=== PATIENT | female | born 1935 | race Caucasian/White ===

== ENCOUNTER → 2018-02-11 08:50 | Outpatient (CLI) | payer MEDICARE, SELFPAY ==
[2018-02-11 11:28] LABS: Add Manual Diff / Slide Review NO; Basophils Percent Auto 0.9 % (0-2); Eosinophils Percent Auto 3.4 % (2-4); Hematocrit 39.2 % (36-46); Hemoglobin 13.3 g/dL (12.0-16.0); Lymphocytes Percent Auto 33.8 % (25-40); Mean Corpuscular Volume 88.3 fL (80-100); Monocytes Percent Auto 4.5 % (3-14); Neutrophils Absolute Auto 3900 /uL (3000-5900); Neutrophils Percent Auto 57.4 % (50-75); Platelet Count 222 X10^3/uL (150-400); Red Blood Cell Count 4.44 X10^6/uL (4.0-5.2); Red Cell Distribution Width 14.2 % (11.6-14.8); White Blood Cell Count 6.8 X10^3/uL (4.5-11.0)
[2018-02-11 11:38] LABS: Alanine Aminotransferase 23 IU/L (9-52); Albumin Globulin Ratio 1.4 (1.0-2.8); Alkaline Phosphatase 61 U/L (38-126); Aspartate Aminotransferase 20 IU/L (14-36); Bilirubin Total 0.6 mg/dL (0.2-1.3); Blood Urea Nitrogen 14 mg/dL (7-17); Calcium 9.3 mg/dL (8.4-10.2); Carbon Dioxide 27 mmol/L (22-32); Chloride 102 mmol/L (98-107); Cholesterol 183 mg/dL (140-199); Estimated Glomerular Filt Rate > 60.0 mL/min (>60); Globulin 2.9 g/dL (1.7-4.1); Glucose 88 mg/dL (80-110); HDL Cholesterol 63 mg/dL (40-60); HEMOLYSIS < 15 (0-50); LDL Cholesterol Calculated 106 mg/dL (<100); Potassium 4.1 mmol/L (3.4-5.1); Sodium 141 mmol/L (137-145); Total Protein 6.9 g/dL (6.3-8.2); Triglycerides 68 mg/dL (35-150)
[2018-02-11 12:04] LABS: TSH w/ Reflex to FT4 2.76 uIU/mL (0.47-4.68)
== END ==
PROVIDERS: PCP Family Medicine; Visit Provider Family Medicine
DX: M47.22 Other spondylosis with radiculopathy, cervical region (principal); M19.90 Unspecified osteoarthritis, unspecified site
CPT/HCPCS: 36415; 80053; 80061; 84443; 85025

== ENCOUNTER 2018-03-13 11:34 | Emergency (ER) | payer MEDICARE, SELFPAY ==
[2018-03-13 11:41] VITALS: BP 186/80; PULSE 95; RESP 20; TEMP 36.5; O2SAT 100; BMI 21.7
--- NOTE | 2018-03-13 16:27 | ED_ITS ---
HPI - Skin/Abscess/Foreign Bdy General Chief complaint: Skin/Abscess/Foreign Body Stated complaint: bumped rt wrist, bruising and swollen Time Seen by Provider: 03/13/18 11:45 Source: patient Mode of arrival: ambulatory Limitations: no limitations History of Present Illness HPI narrative: 82-year-old nonsmoking female presents with a friend after she injured her right forearm just prior to arrival. The patient lightly bumped her right arm on a metal cabinet and is caused an area of swelling and tenderness. She denies any other pain or injury. She denies any numbness, tingling or weakness. She takes no blood thinners complaint: other Onset (ago): minute(s) Tetanus up to date: yes Location: RUE Severity: mild Quality: aching Pain Consistency: constant Relieving factors: none Exacerbating factors: palpation Context: none Associated symptoms: denies other symptoms Treatments prior to arrival: none Related Data Home Medications Medication Instructions Recorded Confirmed AMINOBENZOIC ACID/BIOTIN/CA (#B 1 cap PO Q DAY #0 05/10/11 02/12/18 COMPLEX) FLAXSEED (FLAXSEED OIL) 1 cap PO Q DAY #0 05/10/11 02/12/18 Fish Oil (#OMEGA 3) 1,000 mg PO Q DAY #0 05/10/11 02/12/18 [GLUCOSIMINE] 1,500 mg PO QDAY #0 07/24/11 02/12/18 cholecalciferol (vitamin D3) 1,000 iu PO QDAY #0 07/24/11 02/12/18 [Vitamin D3] aspirin 325 mg tablet 325 mg PO .EVERY OTHER DAY tab 02/12/18 02/12/18 aspirin 81 mg tablet,delayed 81 mg PO .EVERY OTHER DAY tab 02/12/18 02/12/18 release Previous Rx's Medication Instructions Recorded paroxetine HCl [Paxil] 20 mg PO QDAY #90 tab 12/13/16 Allergies Allergy/AdvReac Type Severity Reaction Status Date / Time No Known Drug Allergies Allergy Verified 02/12/18 13:36 Review of Systems Review of Systems All systems reviewed & are unremarkable except as noted in HPI and below Constitutional Denies chills, Denies fever(s), Denies lethargy and Denies weakness Cardiovascular Denies chest pain, Denies irregular heart rhythm, Denies lightheadedness, Denies palpitations and Denies orthopnea Gastrointestinal Gastrointestinal: Denies abdominal pain, Denies change in bowel habits, Denies diarrhea, Denies nausea and Denies vomiting Musculoskeletal Denies back pain, Denies muscle weakness, Denies numbness and Denies tingling Integumentary/Breasts Denies pruritus, Denies erythema, Denies rash and Denies wounds Neurologic Denies numbness, Denies tingling and Denies weakness Endocrine Denies palpitations FORMERLY [facility] Medical History Depression (Chronic) Surgical History Status post appendectomy Status post vaginal hysterectomy Family History Father No problems noted. Mother No problems noted. Social History Smoking Status: Never smoker alcohol intake: never substance use type: does not use Exam Narrative Exam Narrative: GEN: AOx3 and in mild distress EYES: Pupils are equal, round, and reactive to light and accommodation. Extraoccular muscles are intact bilaterally. There is no subconjunctival hemorrhage or exudate. CHEST: Lungs are clear to auscultation bilaterally and free of wheezes, rales, or rhonchi. Heart rate is regular rhythm, there are no murmurs, clicks, rubs, or gallops. There is no chest wall tenderness. ABD: Abdomen is soft and nontender. There is no guarding or rebound. Bowel sounds are normal in all 4 quadrants. There is no mass or organomegaly. EXT: 2 cm tender hematoma on right forearm overlying distal 3rd of radius. No break in the skin. No crepitance or suggestion of significant injury. Full painless ROM of all extremities with no loss of sensation or strength. SKIN: Warm, pink, and dry. No erythema or rash Initial Vital Signs Initial Vital Signs: Vital Signs Temperature 97.7 F 03/13/18 11:41 Pulse Rate 95 H 03/13/18 11:41 Respiratory Rate 20 03/13/18 11:41 Blood Pressure 186/80 H 03/13/18 11:41 Pulse Oximetry 100 03/13/18 11:41 Course Reevaluation(s) Reevaluation #1: patient wrapped in compressive dressing, tolerates well. Neurovascular status remains intact Vital Signs - 8 hr 03/13/18 11:41 Temperature 97.7 F Pulse Rate 95 H Respiratory Rate 20 Blood Pressure 186/80 H Pulse Oximetry 100 Discharge Plan Departure Patient Disposition: Home Clinical Impression: Hematoma Discharge Date/Time: 03/13/18 11:58 Interventions: ED Discharge Assessment Last Done: 03/13/18 11:58 Instructions: DI for Hematoma (Bruise) Activity Restrictions/Additional Instructions: *You have been diagnosed with [ right forearm hematoma] *What to do: * continue to take medications as directed *Follow up with your primary care provider in 2-3 days, call for an appointment. Let them know you were seen in the Emergency Department and that we ask that you be seen in follow up *Return to ER if you should have any new, worsening or concerning symptoms Prescriptions: No Action AMINOBENZOIC ACID/BIOTIN/CA (#B COMPLEX) 1 cap PO Q DAY Qty: 0 RF: 0 FLAXSEED (FLAXSEED OIL) 1 cap PO Q DAY Qty: 0 RF: 0 Fish Oil (#OMEGA 3) 1,000 mg PO Q DAY Qty: 0 RF: 0 cholecalciferol (vitamin D3) [Vitamin D3] 1,000 UNIT tablet 1,000 iu PO QDAY Qty: 0 RF: 0 [GLUCOSIMINE] 1,500 mg PO QDAY Qty: 0 RF: 0 paroxetine HCl [Paxil] 20 MG tablet 20 mg PO QDAY Qty: 90 RF: 2 aspirin [Adult Low Dose Aspirin] 81 mg tablet,delayed release (DR/EC) 81 mg PO .EVERY OTHER DAY RF: 0 aspirin 325 mg tablet 325 mg PO .EVERY OTHER DAY RF: 0
== END 2018-03-13 11:58 | disposition home or self-care (01) ==
LOC: ED 11:54
PROVIDERS: Emergency Provider Emergency Medicine; PCP Family Medicine
DX: S50.11XA Contusion of right forearm, initial encounter (principal); W22.8XXA Striking against or struck by other objects, initial encounter
CPT/HCPCS: 99282

== ENCOUNTER → 2018-06-20 12:21 | Outpatient (CLI) | payer MEDICARE, SELFPAY ==
--- NOTE | 2018-06-20 | DI.MG.S_ITS ---
BILATERAL DIGITAL SCREENING MAMMOGRAM 3D/2D WITH CAD: 06/20/2018 CLINICAL: Routine screening. Comparison is made to exams dated: 06/14/2017 mammogram, 06/05/2016 mammogram, and 06/02/2015 mammogram - [facility]. There are scattered fibroglandular elements in both breasts. Current study was also evaluated with a Computer Aided Detection (CAD) system. No significant masses, calcifications, or other findings are seen in either breast. There has been no significant interval change. IMPRESSION: NEGATIVE There is no mammographic evidence of malignancy. A 1 year screening mammogram is recommended. This exam was interpreted at Station ID: [id number]. NOTE: For mammograms, a report in lay terms will be sent to the patient. Approximately 15% of breast malignancies will not be visualized mammographically. In the management of a palpable breast mass, a negative mammogram must not discourage biopsy of a clinically suspicious lesion. Electronically Signed By: Dejan cope/miller:06/20/2018 13:25:51 letter sent: Normal Exam ACR BI-RADS Category 1: Negative 3341F
== END ==
PROVIDERS: PCP Family Medicine; Visit Provider Family Medicine
DX: Z12.31 Encounter for screening mammogram for malignant neoplasm of breast (principal)
CPT/HCPCS: 77063; 77067

== ENCOUNTER → 2019-06-23 09:29 | Outpatient (CLI) | payer MEDICARE, SELFPAY ==
--- NOTE | 2019-06-23 | DI.MG.S_ITS ---
BILATERAL DIGITAL SCREENING MAMMOGRAM 3D/2D WITH CAD: 06/23/2019 CLINICAL: Routine screening. Comparison is made to exams dated: 06/20/2018 mammogram, 06/14/2017 mammogram, and 06/05/2016 mammogram - [facility]. There are scattered fibroglandular elements in both breasts. Current study was also evaluated with a Computer Aided Detection (CAD) system. There are benign calcifications in both breasts. There also are benign vascular calcifications in both breasts. No significant masses, calcifications, or other findings are seen in either breast. There has been no significant interval change. IMPRESSION: There is no mammographic evidence of malignancy. A 1 year screening mammogram is recommended. This exam was interpreted at Station ID: [id number]. NOTE: For mammograms, a report in lay terms will be sent to the patient. Approximately 15% of breast malignancies will not be visualized mammographically. In the management of a palpable breast mass, a negative mammogram must not discourage biopsy of a clinically suspicious lesion. Electronically Signed By: Evette epperson/miller:06/23/2019 10:21:43 letter sent: Normal Exam ACR BI-RADS Category 2: Benign Finding(s) 3342F
== END ==
PROVIDERS: PCP Family Medicine; Referring Provider Family Medicine; Visit Provider Family Medicine
DX: Z12.31 Encounter for screening mammogram for malignant neoplasm of breast (principal)
CPT/HCPCS: 77063; 77067

== ENCOUNTER → 2020-02-09 09:10 | Outpatient (CLI) | payer MEDICARE, SELFPAY ==
[2020-02-09 10:13] LABS: Add Manual Diff / Slide Review NO; Basophils Absolute Auto 100 /uL (0-100); Basophils Percent Auto 1.3 % (0-2); Eosinophils Absolute Auto 300 /uL (0-450); Eosinophils Percent Auto 4.5 % (2-4); Hematocrit 39.9 % (36-46); Hemoglobin 13.3 g/dL (12.0-16.0); Lymphocytes Absolute Auto 1900 /uL (1100-4500); Lymphocytes Percent Auto 33.8 % (25-40); Mean Corpuscular HGB Conc 33.2 % (30-36); Mean Corpuscular Volume 90.3 fL (80-100); Monocytes Absolute Auto 300 /uL (0-900); Monocytes Percent Auto 5.3 % (3-14); Neutrophils Absolute Auto 3100 /uL (1500-7000); Neutrophils Percent Auto 55.1 % (50-75); Platelet Count 223 X10^3/uL (150-400); Red Blood Cell Count 4.42 X10^6/uL (4.0-5.2); Red Cell Distribution Width 14.2 % (11.6-14.8); White Blood Cell Count 5.7 X10^3/uL (4.5-11.0)
[2020-02-09 11:53] LABS: Alanine Aminotransferase 14 IU/L (<35); Albumin Globulin Ratio 1.5 (1.0-2.8); Alkaline Phosphatase 64 U/L (38-126); Aspartate Aminotransferase 22 IU/L (14-36); BUN Creatinine Ratio 23.9 (6-22); Bilirubin Total 0.6 mg/dL (0.2-1.3); Blood Urea Nitrogen 17 mg/dL (7-17); Calcium 9.6 mg/dL (8.4-10.2); Carbon Dioxide 29 mmol/L (22-32); Chloride 101 mmol/L (98-107); Estimated Glomerular Filt Rate > 60.0 mL/min (>60); Globulin 2.7 g/dL (1.7-4.1); Glucose 88 mg/dL (80-110); HEMOLYSIS < 15 (0-50); Potassium 4.8 mmol/L (3.4-5.1); Sodium 135 mmol/L (137-145); Total Protein 6.7 g/dL (6.3-8.2)
[2020-02-09 12:20] LABS: TSH w/ Reflex to FT4 2.54 uIU/mL (0.47-4.68)
== END ==
PROVIDERS: PCP Family Medicine; Referring Provider Family Medicine; Visit Provider Family Medicine
DX: F34.1 Dysthymic disorder (principal); M19.90 Unspecified osteoarthritis, unspecified site; M47.22 Other spondylosis with radiculopathy, cervical region
CPT/HCPCS: 36415; 80053; 84443; 85025

== ENCOUNTER → 2020-07-11 16:41 | Outpatient (CLI) | payer MEDICARE, SELFPAY ==
--- NOTE | 2020-07-11 16:43 | DI.MG.S_ITS ---
BILATERAL DIGITAL SCREENING MAMMOGRAM 3D/2D WITH CAD: 07/11/2020 CLINICAL: Routine screening. Comparison is made to exams dated: 06/23/2019 mammogram, 06/20/2018 mammogram, 06/14/2017 mammogram, 06/05/2016 mammogram, and 06/02/2015 mammogram - [facility]. There are scattered fibroglandular elements in both breasts. Current study was also evaluated with a Computer Aided Detection (CAD) system. There are benign calcifications in both breasts. There also are benign vascular calcifications in both breasts. No significant masses, calcifications, or other findings are seen in either breast. There has been no significant interval change. IMPRESSION: BENIGN There is no mammographic evidence of malignancy. A 1 year screening mammogram is recommended. This exam was interpreted at Station ID: [id number]. NOTE: For mammograms, a report in lay terms will be sent to the patient. Approximately 15% of breast malignancies will not be visualized mammographically. In the management of a palpable breast mass, a negative mammogram must not discourage biopsy of a clinically suspicious lesion. Electronically Signed By: Jimbo hernandez/miller:07/12/2020 07:49:20 letter sent: Normal Exam ACR BI-RADS Category 2: Benign Finding(s) 3342F
== END ==
PROVIDERS: PCP Family Medicine; Referring Provider Family Medicine; Visit Provider Family Medicine
DX: Z12.31 Encounter for screening mammogram for malignant neoplasm of breast (principal)
CPT/HCPCS: 77063; 77067

== ENCOUNTER → 2020-07-23 11:09 | Outpatient (CLI) | payer MEDICARE, SELFPAY ==
--- NOTE | 2020-07-23 | DI.MRI.S_ITS ---
PROCEDURE: MR CERVICAL SPINE WO CON INDICATIONS: Spondylosis without myelopathy or radiculopathy, cervical re TECHNIQUE: Noncontrast sagittal T1 spin echo and T2 fast spin echo, sagittal STIR, foraminal oblique sagittal T2 fast spin echo, and axial gradient echo or T2 fast spin echo through the cervical spine. COMPARISON: [facility], MR, C-SPINE WITHOUT CONTRAST, 04/27/2014, 7:48. FINDINGS: Image quality: Excellent. Alignment and Curvature: There is mild grade 1 anterolisthesis of C3 on C4 and C7 on T1. Mild grade 1 retrolisthesis of C6 on C7. Bone Marrow: Marrow demonstrates normal overall signal. There is mild reactive signal throughout the endplates of the cervical spine. Spinal Cord: Visualized spinal cord has normal size and signal. No cerebellar tonsillar herniation. Paraspinous Soft Tissues: No paravertebral masses. Prevertebral soft tissues are normal in thickness. C2-C3: Moderate disc desiccation. Mild facet and uncovertebral hypertrophy, left greater than right. Mild canal stenosis. Increased, moderate left and mild right foraminal stenosis. C3-C4: Moderate disc height loss and desiccation. Moderate diffuse disc bulge with superimposed left paracentral disc protrusion. Moderate facet and uncovertebral hypertrophy, right greater than left. Increased, moderate to severe canal stenosis with new minimal cord flattening. Increased, severe right and moderate left foraminal stenosis. Right C4 nerve root compression. C4-C5: Moderate disc height loss and desiccation. Mild diffuse disc bulge. Moderate left greater than right facet and uncovertebral hypertrophy. Increased, moderate canal stenosis. Moderate bilateral foraminal stenosis, increased from the prior examination. C5-C6: Moderate disc height loss and desiccation. Mild diffuse disc bulge. Moderate right and mild left facet and uncovertebral hypertrophy. Moderate canal stenosis is unchanged. Increased, moderate right foraminal stenosis. No change in mild left foraminal stenosis. C6-C7: Moderate disc height loss and desiccation. Moderate diffuse disc bulge. Mild left and moderate right facet and uncovertebral hypertrophy. Increased, moderate canal stenosis. Increased, moderate right and mild left foraminal stenosis. C7-T1: Moderate disc height loss and desiccation. Mild diffuse disc bulge. Mild facet and uncovertebral hypertrophy bilaterally, left greater than right. Moderate canal stenosis. Increased, moderate to severe left and moderate right foraminal stenosis. New mild left C8 nerve root compression. IMPRESSION: 1. Multilevel degenerative disc and facet disease, as well as uncovertebral hypertrophy. 2. Multilevel canal stenoses, worst at C3-C4 where there is minimal cord flattening. 3. Multilevel foraminal stenosis, worst at C3-C4 and C7-T1 where there is associated intraforaminal nerve root compression. Recommend correlation with clinical symptoms to ascertain relevance of this finding. Dictated by: James Becker M.D. on 07/25/2020 at 8:59 Approved by: James Becker M.D. on 07/25/2020 at 9:11
== END ==
PROVIDERS: PCP Family Medicine; Referring Provider Physical Medicine & Rehabilitation; Visit Provider Physical Medicine & Rehabilitation
DX: M47.812 Spondylosis without myelopathy or radiculopathy, cervical region (principal); M50.31 Other cervical disc degeneration, high cervical region; M48.02 Spinal stenosis, cervical region
CPT/HCPCS: 72141

== ENCOUNTER → 2021-06-01 15:28 | Outpatient (CLI) | payer MEDICARE, SELFPAY ==
[2021-06-01 17:07] LABS: Add Manual Diff / Slide Review NO; Basophils Absolute Auto 100 /uL (0-100); Basophils Percent Auto 0.9 % (0-2); Eosinophils Absolute Auto 400 /uL (0-450); Eosinophils Percent Auto 4.6 % (2-4); Hematocrit 37.2 % (36-46); Hemoglobin 12.7 g/dL (12.0-16.0); Lymphocytes Absolute Auto 2500 /uL (1100-4500); Lymphocytes Percent Auto 31.3 % (25-40); Mean Corpuscular HGB Conc 34.1 % (30-36); Monocytes Absolute Auto 400 /uL (0-900); Monocytes Percent Auto 5.5 % (3-14); Neutrophils Absolute Auto 4500 /uL (1500-7000); Neutrophils Percent Auto 57.7 % (50-75); Platelet Count 223 X10^3/uL (150-400); Red Blood Cell Count 4.23 X10^6/uL (4.0-5.2); Red Cell Distribution Width 14.1 % (11.6-14.8); White Blood Cell Count 7.9 X10^3/uL (4.5-11.0)
[2021-06-01 17:28] LABS: Alanine Aminotransferase 12 IU/L (<35); Albumin 4.3 g/dL (3.5-5.0); Albumin Globulin Ratio 1.7 (1.0-2.8); Alkaline Phosphatase 67 U/L (38-126); Aspartate Aminotransferase 24 IU/L (14-36); BUN Creatinine Ratio 22.9 (6-22); Bilirubin Total 0.4 mg/dL (0.2-1.3); Blood Urea Nitrogen 16 mg/dL (7-17); Calcium 9.8 mg/dL (8.4-10.2); Carbon Dioxide 27 mmol/L (22-32); Chloride 100 mmol/L (98-107); Estimated Glomerular Filt Rate > 60.0 mL/min (>60); Globulin 2.6 g/dL (1.7-4.1); Glucose 91 mg/dL (80-110); HEMOLYSIS < 15 (0-50); Potassium 4.9 mmol/L (3.4-5.1); Sodium 134 mmol/L (137-145); Total Protein 6.9 g/dL (6.3-8.2)
== END ==
PROVIDERS: PCP Family Medicine; Referring Provider Physician Assistant; Visit Provider Physician Assistant
DX: M25.50 Pain in unspecified joint (principal); Z13.0 Encounter for screening for diseases of the blood and blood-forming organs and certain disorders involving the immune mechanism; Z13.1 Encounter for screening for diabetes mellitus
CPT/HCPCS: 36415; 80053; 85025

== ENCOUNTER → 2021-07-13 15:43 | Outpatient (CLI) | payer MEDICARE, SELFPAY ==
--- NOTE | 2021-07-13 15:47 | DI.MG.S_ITS ---
BILATERAL DIGITAL SCREENING MAMMOGRAM 3D/2D WITH CAD: 07/13/2021 CLINICAL: Routine screening. Comparison is made to exams dated: 07/11/2020 mammogram, 06/23/2019 mammogram, and 06/20/2018 mammogram - [facility]. There are scattered fibroglandular elements in both breasts. Current study was also evaluated with a Computer Aided Detection (CAD) system. There are benign calcifications in both breasts. There also are benign vascular calcifications in both breasts. No significant masses, calcifications, or other findings are seen in either breast. There has been no significant interval change. IMPRESSION: BENIGN There is no mammographic evidence of malignancy. A 1 year screening mammogram is recommended. This exam was interpreted at Station ID: [id number]. NOTE: For mammograms, a report in lay terms will be sent to the patient. Approximately 15% of breast malignancies will not be visualized mammographically. In the management of a palpable breast mass, a negative mammogram must not discourage biopsy of a clinically suspicious lesion. Electronically Signed By: Darby forbes/miller:07/13/2021 16:59:45 letter sent: Normal Exam ACR BI-RADS Category 2: Benign Finding(s) 3342F
== END ==
PROVIDERS: PCP Family Medicine; Referring Provider Family Medicine; Visit Provider Family Medicine
DX: Z12.31 Encounter for screening mammogram for malignant neoplasm of breast (principal)
CPT/HCPCS: 77063; 77067

== ENCOUNTER → 2022-07-20 07:56 | Outpatient (CLI) | payer MEDICARE, SELFPAY ==
--- NOTE | 2022-07-20 | DI.MG.S_ITS ---
BILATERAL DIGITAL SCREENING MAMMOGRAM 3D/2D WITH CAD: 07/20/2022 CLINICAL: Routine screening. Comparison is made to exams dated: 07/13/2021 mammogram, 07/11/2020 mammogram, 06/23/2019 mammogram, and 06/20/2018 mammogram - [facility]. There are scattered areas of fibroglandular density in both breasts (category b / 25%-50% glandular tissue). Current study was also evaluated with a Computer Aided Detection (CAD) system. There are benign calcifications in both breasts. There also are benign vascular calcifications in both breasts. No significant masses, calcifications, or other findings are seen in either breast. There has been no significant interval change. IMPRESSION: BENIGN There is no mammographic evidence of malignancy. A 1 year screening mammogram is recommended. Based on the Tyrer Cuzick model (a risk assessment model) the patient's lifetime risk is 0.2% and her 10 year risk is 0.0%. According to the ACR, ACS, and NCCN guidelines, an annual breast MRI exam along with mammogram is recommended if the patient's lifetime risk is 20% or greater. This exam was interpreted at Station ID: [id number]. NOTE: For mammograms, a report in lay terms will be sent to the patient. Approximately 15% of breast malignancies will not be visualized mammographically. In the management of a palpable breast mass, a negative mammogram must not discourage biopsy of a clinically suspicious lesion. Electronically Signed By: Evette epperson/miller:07/20/2022 09:50:23 letter sent: Normal Exam ACR BI-RADS Category 2: Benign Finding(s) 3342F
== END ==
PROVIDERS: PCP Family Medicine; Referring Provider Family Medicine; Visit Provider Family Medicine
DX: Z12.31 Encounter for screening mammogram for malignant neoplasm of breast (principal)
CPT/HCPCS: 77063; 77067

== ENCOUNTER → 2023-08-05 13:55 | Outpatient (CLI) | payer MEDICARE, SELFPAY ==
--- NOTE | 2023-08-05 13:58 | DI.MG.S_ITS ---
BILATERAL DIGITAL SCREENING MAMMOGRAM 3D/2D WITH CAD: 08/05/2023 CLINICAL: Routine screening. Comparison is made to exams dated: 07/20/2022 mammogram, 07/13/2021 mammogram, 07/11/2020 mammogram, and 06/23/2019 mammogram - [facility]. There are scattered areas of fibroglandular density in both breasts (category b / 25%-50% glandular tissue). Current study was also evaluated with a Computer Aided Detection (CAD) system. There are benign calcifications in both breasts. There also are benign vascular calcifications in both breasts. No significant masses, calcifications, or other findings are seen in either breast. There has been no significant interval change. IMPRESSION: BENIGN There is no mammographic evidence of malignancy. A 1 year screening mammogram is recommended. This exam was interpreted at Station ID: [id number]. NOTE: For mammograms, a report in lay terms will be sent to the patient. Approximately 15% of breast malignancies will not be visualized mammographically. In the management of a palpable breast mass, a negative mammogram must not discourage biopsy of a clinically suspicious lesion. Electronically Signed By: Jimbo hernandez/miller:08/05/2023 15:12:35 letter sent: Normal Exam ACR BI-RADS Category 2: Benign Finding(s) 3342F
== END ==
PROVIDERS: PCP Family Medicine; Referring Provider Family Medicine; Visit Provider Family Medicine
DX: Z12.31 Encounter for screening mammogram for malignant neoplasm of breast (principal); R92.323 Mammographic fibroglandular density, bilateral breasts
CPT/HCPCS: 77063; 77067

== ENCOUNTER → 2023-09-13 07:29 | Outpatient (CLI) | payer MEDICARE, SELFPAY ==
[2023-09-13 08:23] LABS: Add Manual Diff / Slide Review NO; Basophils Absolute Auto 100 /uL (0-100); Basophils Percent Auto 1.2 % (0-2); Eosinophils Absolute Auto 300 /uL (0-450); Eosinophils Percent Auto 5.5 % (2-4); Hematocrit 38.5 % (36-46); Hemoglobin 13.3 g/dL (12.0-16.0); Lymphocytes Absolute Auto 1800 /uL (1100-4500); Lymphocytes Percent Auto 33.7 % (25-40); Mean Corpuscular HGB Conc 34.5 % (30-36); Mean Corpuscular Hemoglobin 30.9 PG (26-34); Mean Corpuscular Volume 89.3 fL (80-100); Monocytes Absolute Auto 300 /uL (0-900); Monocytes Percent Auto 6.4 % (3-14); Neutrophils Absolute Auto 2800 /uL (1500-7000); Neutrophils Percent Auto 53.2 % (50-75); Platelet Count 214 X10^3/uL (150-400); Red Blood Cell Count 4.31 X10^6/uL (4.0-5.2); Red Cell Distribution Width 14.3 % (11.6-14.8); White Blood Cell Count 5.3 X10^3/uL (4.5-11.0)
[2023-09-13 08:48] LABS: HEMOLYSIS < 15 (0-50); Iron 103 ug/dL (37-170)
[2023-09-13 08:51] LABS: Alanine Aminotransferase 15 IU/L (<35); Albumin 4.3 g/dL (3.5-5.0); Albumin Globulin Ratio 1.7 (1.0-2.8); Alkaline Phosphatase 68 U/L (38-126); Aspartate Aminotransferase 24 IU/L (14-36); BUN Creatinine Ratio 22.5 (6-22); Bilirubin Total 0.8 mg/dL (0.2-1.3); Blood Urea Nitrogen 16 mg/dL (7-17); Calcium 9.6 mg/dL (8.4-10.2); Carbon Dioxide 27 mmol/L (22-32); Chloride 103 mmol/L (98-107); Estimated Glomerular Filt Rate > 60 mL/min (>60); Globulin 2.5 g/dL (1.7-4.1); Glucose 88 mg/dL (80-110); HEMOLYSIS < 15 (0-50); Potassium 4.4 mmol/L (3.4-5.1); Sodium 135 mmol/L (137-145); Total Protein 6.8 g/dL (6.3-8.2)
[2023-09-13 08:58] LABS: Percent Iron Saturation 40 % (15-50); Total Iron Binding Capacity 258 ug/dL (265-497); Transferrin 212 mg/dL (206-381)
[2023-09-13 09:17] LABS: TSH w/ Reflex to FT4 2.25 uIU/mL (0.47-4.68)
[2023-09-13 09:33] LABS: Vitamin B12 886 pg/mL (239-931)
== END ==
PROVIDERS: PCP Family Medicine; Referring Provider Physician Assistant; Visit Provider Physician Assistant
DX: R53.83 Other fatigue (principal)
CPT/HCPCS: 36415; 80053; 82607; 83540; 83550; 84443; 85025

== ENCOUNTER → 2024-03-03 07:17 | Outpatient (CLI) | payer MEDICARE, SELFPAY ==
--- NOTE | 2024-03-03 | DI.MRI.S_ITS ---
PROCEDURE: MR CERVICAL SPINE WO CON INDICATIONS: Radiculopathy, cervical region .. TECHNIQUE: Noncontrast sagittal T1 spin echo and T2 fast spin echo, sagittal STIR, foraminal oblique sagittal T2 fast spin echo, and axial gradient echo or T2 fast spin echo through the cervical spine. COMPARISON: , MR, MR CERVICAL SPINE WO CON, 07/23/2020, 11:18. FINDINGS: Image quality: Excellent. Alignment and Curvature: Loss of normal cervical lordosis. 3 mm of anterolisthesis of C3 on C4 and C4 on C5. 4 mm of anterolisthesis of C7 on T1. 2 mm of anterolisthesis of T1 on T2. 4 mm of anterolisthesis of T2 on T3. Bone Marrow: Marrow demonstrates normal overall signal. Mild reactive signal throughout the endplates of the cervical and upper thoracic spine, most prominently at C5-C6 and C6-C7. Spinal Cord: Visualized spinal cord has normal size and signal. No cerebellar tonsillar herniation. Paraspinous Soft Tissues: No paravertebral masses. Prevertebral soft tissues are normal in thickness. C2-C3: Moderate disc desiccation. Mild facet and uncovertebral hypertrophy. Mild diffuse disc bulge. Mild canal stenosis. Moderate left and mild right foraminal stenosis. No significant change. C3-C4: Moderate disc height loss and desiccation. Moderate diffuse disc bulge. Superimposed small broad-based left paracentral protrusion. Moderate facet and uncovertebral hypertrophy. Moderate to severe canal stenosis. Mild cord flattening. Severe right greater than left foraminal stenosis, with right greater than left C4 nerve root compression. C4-C5: Mild disc height loss. Moderate disc desiccation. Mild diffuse disc bulge. Moderate facet and uncovertebral hypertrophy. Increased, moderate to severe canal stenosis with new minimal cord flattening. Increased, moderate to severe bilateral foraminal stenosis with mild bilateral C5 nerve root compression. C5-C6: Moderate disc height loss and desiccation. Mild diffuse disc bulge. Moderate facet and uncovertebral hypertrophy. Moderate canal stenosis. Moderate right and mild left foraminal stenosis. No significant change. C6-C7: Increased, severe disc height loss and desiccation. Moderate diffuse disc bulge. Mild facet and uncovertebral hypertrophy bilaterally. Moderate canal stenosis. Moderate right and mild left foraminal stenosis. No significant change. C7-T1: Moderate disc height loss and desiccation. Mild diffuse disc bulge. Mild facet and uncovertebral hypertrophy. Moderate canal stenosis. Increased, severe left foraminal stenosis. No change in moderate right foraminal stenosis. Left C8 nerve root compression. IMPRESSION: 1. Multilevel degenerative disc and facet disease, as well as uncovertebral hypertrophy. 2. Multilevel canal stenoses, worst at C3-C4 and C4-C5 where there is associated cord flattening. 3. Multilevel foraminal stenoses, worst at C3-C4, C4-C5, and C7-T1, where there is associated intraforaminal nerve root compression. Recommend correlation with clinical symptoms to ascertain relevance of this finding. Dictated by: James Becker M.D. on 03/03/2024 at 9:22 Approved by: James Becker M.D. on 03/03/2024 at 9:30
== END ==
PROVIDERS: PCP Family Medicine; Referring Provider Physical Medicine & Rehabilitation; Visit Provider Physical Medicine & Rehabilitation
DX: M47.22 Other spondylosis with radiculopathy, cervical region (principal); M50.11 Cervical disc disorder with radiculopathy, high cervical region; M48.02 Spinal stenosis, cervical region
CPT/HCPCS: 72141

== ENCOUNTER 2024-03-30 12:44 | Emergency (ER) | payer OTHER, MEDICARE, SELFPAY ==
[2024-03-30] VITALS (15 sets, daily range): BP systolic 143–193; BP diastolic 77–91; PULSE 59–90; RESP 15–38; TEMP 36.6; O2SAT 95–100; BMI 21.6
--- NOTE | 2024-03-30 12:53 | DI.RAD.S_ITS ---
PROCEDURE: XR CHEST 1V INDICATIONS: chest pain TECHNIQUE: One view of the chest was acquired. COMPARISON: None. FINDINGS: Surgical changes and devices: None. Lungs and pleura: Lungs are clear. No pleural effusions or pneumothorax. Mediastinum: Mediastinal contours appear normal. Heart size is normal. Bones and chest wall: No suspicious bony lesions. Overlying soft tissues appear unremarkable. IMPRESSION: No acute cardiopulmonary abnormality is seen. Dictated by: Fer Jasso M.D. on 03/30/2024 at 13:39 Approved by: Fer Jasso M.D. on 03/30/2024 at 13:40
--- NOTE | 2024-03-30 12:54 | DI.RAD.S_ITS ---
PROCEDURE: XR WRIST RT MIN 3V INDICATIONS: fall/ pain TECHNIQUE: 4 views of the wrist were acquired. COMPARISON: None. FINDINGS: Bones: Spiral fracture of the distal ulna. Severe degenerative changes about the wrist and 1st CMC period Soft tissues: No suspicious soft tissue calcifications. IMPRESSION: Spiral fracture of the distal ulna. Consider elbow radiographs to exclude proximal radial dislocation. Dictated by: Fer Jasso M.D. on 03/30/2024 at 13:40 Approved by: Fer Jasso M.D. on 03/30/2024 at 13:41
--- NOTE | 2024-03-30 13:04 | EKG_ITS ---
[address] [address] Test Date: 2024-03-30 Pat Name: Lily Garcia Department: [facility] Room: Gender: Female [employer]: JOSEFINA : 1935 Requested By: Order Number: [id number] Reading MD: Jean Carlos Olsen Measurements Intervals Soper Rate: 81 P: OR: QRS: 33 QRSD: 78 T: 52 QT: 388 QTc: 450 Interpretive Statements Atrial fibrillation with a competing junctional pacemaker Electronically Signed On 04-01-2024 19:03:09 PST by Jean Carlos Olsen
[2024-03-30 13:08] LABS: INR 1.1 (0.9-1.3)
[2024-03-30 13:10] LABS: Add Manual Diff / Slide Review NO; Basophils Absolute Auto 100 /uL (0-100); Eosinophils Absolute Auto 100 /uL (0-450); Eosinophils Percent Auto 1.3 % (2-4); Hematocrit 40.1 % (36-46); Hemoglobin 13.5 g/dL (12.0-16.0); Lymphocytes Absolute Auto 3500 /uL (1100-4500); Lymphocytes Percent Auto 31.1 % (25-40); Mean Corpuscular HGB Conc 33.7 % (30-36); Mean Corpuscular Hemoglobin 30.3 PG (26-34); Mean Corpuscular Volume 90.1 fL (80-100); Monocytes Absolute Auto 600 /uL (0-900); Monocytes Percent Auto 5.2 % (3-14); Neutrophils Absolute Auto 6900 /uL (1500-7000); Neutrophils Percent Auto 61.4 % (50-75); Platelet Count 257 X10^3/uL (150-400); Red Blood Cell Count 4.46 X10^6/uL (4.0-5.2); Red Cell Distribution Width 14.1 % (11.6-14.8); White Blood Cell Count 11.2 X10^3/uL (4.5-11.0)
[2024-03-30 13:11] LABS: PTT Partial Thromboplastin Tim 31 SECONDS (25.1-36.5)
[2024-03-30 13:12] LABS: Alanine Aminotransferase 20 IU/L (<35); Albumin 4.3 g/dL (3.5-5.0); Albumin Globulin Ratio 1.6 (1.0-2.8); Alkaline Phosphatase 69 U/L (38-126); Aspartate Aminotransferase 37 IU/L (14-36); BUN Creatinine Ratio 20.3 (6-22); Bilirubin Total 0.6 mg/dL (0.2-1.3); Blood Urea Nitrogen 16 mg/dL (7-17); Calcium 9.5 mg/dL (8.4-10.2); Carbon Dioxide 23 mmol/L (22-32); Chloride 99 mmol/L (98-107); Creatine Kinase 169 U/L (30-135); Estimated Glomerular Filt Rate > 60 mL/min (>60); Globulin 2.7 g/dL (1.7-4.1); Glucose 107 mg/dL (80-110); HEMOLYSIS 16 (0-50); Lipase 164 U/L (23-300); Potassium 4.3 mmol/L (3.4-5.1); Sodium 130 mmol/L (137-145)
[2024-03-30 13:24] LABS: NT-proBNP (BNP-Adult 18+) 548 pg/mL (<450); Troponin I < 0.012 ng/mL (0.01-0.034)
--- NOTE | 2024-03-30 15:12 | ED_ITS ---
HPI - Fall General Chief Complaint: Fall Stated Complaint: GLF, R wrist pain, Orthostatic Time Seen by Provider: 03/30/24 15:12 Source: patient, EMS, RN notes reviewed and old records reviewed Mode of arrival: EMS Limitations: no limitations History of Present Illness HPI Narrative: 88-year-old female history of hypertension, depression does not take any anticoagulants presents with complaint ground level fall. Patient states of the rug was little bit edge of the chair and tripped her causing her to fall she did hit her lower lip. She also has pain in her right forearm. She states no headache. No neck pain. No chest pain or shortness of breath. Patient states she felt nauseated initially but received medication was helpful in no longer does. Denies any dizziness. Denies any loss of consciousness. Denies any back or pelvic pain. States she did hit her knees little bit painful but she can move it normally. Our main complaint is her lower lip she states it is little couch and her right forearm. Denies any numbness tingling or weakness otherwise. Patient states she takes lisinopril daily and an antidepressant. No aspirin or other thinners. States she does not believe her tetanus is up-to-date. States had a prior hysterectomy and appendectomy. No known drug allergies. No tobacco, no regular alcohol, no recreational drugs. Was witnessed fall by family no loss of consciousness in the state was mechanical. Was noted by EMS to be orthostatic in the field. Related Data Home Medications Medication Instructions Recorded Confirmed mecobalamin (vitamin B12) 1,000 1,000 mcg sublingual DAILY 07/30/23 10/14/23 mcg disintegrating tablet,sublingual Previous Rx's Medication Instructions Recorded paroxetine HCl 20 mg tablet 20 mg PO DAILY #30 tabs 07/30/23 lisinopril 20 mg tablet 10 mg (1/2 x 20 mg) PO DAILY #90 10/14/23 tabs Allergies Allergy/AdvReac Type Severity Reaction Status Date / Time No Known Drug Allergies Allergy Verified 10/14/23 10:32 Review of Systems Review of Systems ROS Unobtainable: All systems reviewed & are unremarkable except as noted in HPI and below Patient History Medical History (Updated 03/30/24 @ 15:41 by Giovanna Brown DO) Depression Surgical History Status post vaginal hysterectomy Status post appendectomy Family History Father No problems noted. Mother No problems noted. Social History marital status: Smoking Status: Never smoker alcohol intake: never substance use type: does not use Smoking Status: Never smoker Substance Use Type: does not use Exam Narrative Exam Narrative: GEN: CPatient appears in mild distress. HEAD: No evidence of trauma, no raccoon/Kennedy sign. NECK: Nontender, painless range of motion, trachea midline Negative Nexus criteria, no midline line tenderness, distracting injury, altered mental status, neuro deficit, recent EtOH. EYES: PERRLA, EOMI ENT: External inspection normal except for abrasion and superficial laceration to the inner lower lip, trachea is midline, TM's are normal no hemotypanum, Nares are clear, no septal hematoma, no dental or oral injury, airway is normal and with normal occlusion, No bony tenderness RESP: Chest is nontender and has symmetric movement, no ecchymosis, breath sounds are normal no crackles, wheezes or rales CVS: Heart sounds are normal, no murmur noted, No JVD. ABG/GI: Nontender, soft, normal bowel sounds, no distention, no organomegaly, pelvic rock is negative NEURO: Oriented AOx3, neuro is grossly intact, sensation and motor is normal all 4 extremities moving, cranial nerves II through XII are intact, GCS is 15 PSYCH: Normal mood and affect SKIN: Intact, warm and dry, no crepitus and without decubitus BACK: No CVA tenderness, no vertebral tenderness, no step-off's, no crepitus EXT: Patient has tenderness over the right distal ulna with a little bit of swelling, she has no bony tenderness of the wrist, fingers or hand. She is nontender over the elbow with normal range of motion. Hips are nontender, no pedal edema, normal color and temperature, normal range of motion of extremities with normal tendon exam, 2+ pulses in all four extremities Initial Vital Signs Initial Vital Signs: Vital Signs Pulse Rate 66 03/30/24 12:48 Pulse Oximetry 100 03/30/24 12:48 Course Orders Ordered: Discontinued Medications Acetaminophen (Acetaminophen 325 Mg Tablet) 975 mg PO NOW ONE Stop: 03/30/24 15:13 Last Admin: 03/30/24 15:17 Dose: 975 mg Documented By: GRACIELA Diphtheria/Tetanus/Acell Pertussis (Tet,Diph,Pertuss(Acell),Vac/Pf 0.5 Ml Syringe) 0.5 ml IM .ONCE ONE Stop: 03/30/24 15:32 Last Admin: 03/30/24 16:08 Dose: 0.5 ml Documented By: HARRISON Vital Signs Vital signs: Vital Signs - 8 hr 03/30/24 12:48 03/30/24 12:49 03/30/24 13:27 Temperature 97.9 F Pulse Rate 66 59 L Respiratory Rate 18 Blood Pressure 143/79 H 178/86 H Pulse Oximetry 100 95 Oxygen Delivery Method Room Air 03/30/24 13:30 03/30/24 13:30 03/30/24 14:00 Temperature Pulse Rate 75 Respiratory Rate 20 Blood Pressure 189/86 H 170/87 H Pulse Oximetry 96 Oxygen Delivery Method 03/30/24 14:30 03/30/24 14:30 03/30/24 14:46 Temperature Pulse Rate 79 80 Respiratory Rate 31 H 38 H Blood Pressure 184/91 H Pulse Oximetry 99 Oxygen Delivery Method 03/30/24 14:46 03/30/24 14:48 03/30/24 14:48 Temperature Pulse Rate 83 Respiratory Rate 31 H Blood Pressure 161/79 H 171/78 H Pulse Oximetry Oxygen Delivery Method 03/30/24 14:49 03/30/24 14:49 03/30/24 14:57 Temperature Pulse Rate 82 83 Respiratory Rate 34 H 17 Blood Pressure 166/84 H Pulse Oximetry Oxygen Delivery Method 03/30/24 14:57 03/30/24 15:00 03/30/24 15:00 Temperature Pulse Rate 81 Respiratory Rate 19 Blood Pressure 188/84 H 170/78 H Pulse Oximetry Oxygen Delivery Method 03/30/24 15:30 03/30/24 15:30 Temperature Pulse Rate 83 Respiratory Rate 20 Blood Pressure 193/90 H Pulse Oximetry Oxygen Delivery Method MDM - Fall Lab Data 03/30/24 12:38 03/30/24 12:38 Labs: Lab Results 03/30/24 Range/Units 12:38 WBC 11.2 H (4.5-11.0) X10^3/uL RBC 4.46 (4.0-5.2) X10^6/uL Hgb 13.5 (12.0-16.0) g/dL Hct 40.1 (36-46) % MCV 90.1 (80-100) fL MCH 30.3 (26-34) PG MCHC 33.7 (30-36) % RDW 14.1 (11.6-14.8) % Plt Count 257 (150-400) X10^3/uL Neut % (Auto) 61.4 (50-75) % Lymph % (Auto) 31.1 (25-40) % [place] % (Auto) 5.2 (3-14) % Eos % (Auto) 1.3 L (2-4) % Baso % (Auto) 1.0 (0-2) % Neut # (Auto) 6900 (6150-7693) /uL Lymph # (Auto) 3500 (5425-6247) /uL [place] # (Auto) 600 (0-900) /uL Eos # (Auto) 100 (0-450) /uL Baso # (Auto) 100 (0-100) /uL PT 12.0 (9.4-12.5) SECONDS INR 1.1 (0.9-1.3) APTT 31 (25.1-36.5) SECONDS Sodium 130 L (137-145) mmol/L Potassium 4.3 (3.4-5.1) mmol/L Chloride 99 (98-107) mmol/L Carbon Dioxide 23 (22-32) mmol/L BUN 16 (7-17) mg/dL Creatinine 0.79 (0.52-1.04) mg/dL Estimated GFR > 60 (>60) mL/min BUN/Creatinine Ratio 20.3 (6-22) Glucose 107 (80-110) mg/dL Calcium 9.5 (8.4-10.2) mg/dL Magnesium 2.0 (1.6-2.3) mg/dL Total Bilirubin 0.6 (0.2-1.3) mg/dL AST 37 H (14-36) IU/L ALT 20 (<35) IU/L Alkaline Phosphatase 69 (38-126) U/L Total Creatine Kinase 169 H (30-135) U/L Troponin I < 0.012 (0.01-0.034) ng/mL NT-Pro-B Natriuret Pep 548 H (<450) pg/mL Total Protein 7.0 (6.3-8.2) g/dL Albumin 4.3 (3.5-5.0) g/dL Globulin 2.7 (1.7-4.1) g/dL Albumin/Globulin Ratio 1.6 (1.0-2.8) Lipase 164 (23-300) U/L Imaging Data Chest x-ray: Radiologist's Impression: [address] [address] XRay Report? Signed Patient: Cesilia Villa MR#: [id number] : 05/11/1964 Acct:[id number] Age/Sex: 59 / F Date of Service: 03/30/24 Loc: ED Accession Number: [id number]? ? Procedure: XR chest 1V Ordering Provider: Giovanna Brown D.O. PROCEDURE:? XR CHEST 1V ? INDICATIONS:? chest pain ? TECHNIQUE:? One view of the chest was acquired.?? ? COMPARISON:? None. ? FINDINGS:?? ? Surgical changes and devices:? None.?? ? Lungs and pleura:? Lungs are clear.? No pleural effusions or pneumothorax.?? ? Mediastinum:? Mediastinal contours appear normal.? Heart size is normal.?? ? Bones and chest wall:? No suspicious bony lesions.? Overlying soft tissues appear? unremarkable.? IMPRESSION:?? ? No acute cardiopulmonary abnormality is seen.? Dictated by: Fer Jasso M.D. on 03/30/2024 at 13:39? ? ? Approved by: Fer Jasso M.D. on 03/30/2024 at 13:39? ? Extremity x-ray #1: Radiologist's Impression: [address] [address] XRay Report Signed Patient: Lily Garcia MR#: [id number] : 1935 Acct:[id number] Age/Sex: 88 / F Date of Service: 03/30/24 Loc: ED Accession Number: [id number] Procedure: XR wrist RT min 3V Ordering Provider: Giovanna Brown D.O. PROCEDURE: XR WRIST RT MIN 3V INDICATIONS: fall/ pain TECHNIQUE: 4 views of the wrist were acquired. COMPARISON: None. FINDINGS: Bones: Spiral fracture of the distal ulna. Severe degenerative changes about the wrist and 1st CMC period Soft tissues: No suspicious soft tissue calcifications. IMPRESSION: Spiral fracture of the distal ulna. Consider elbow radiographs to exclude proximal radial dislocation. Dictated by: Fer Jasso M.D. on 03/30/2024 at 13:40 Approved by: Fer Jasso M.D. on 03/30/2024 at 13:41 Extremity x-ray #2: Radiologist's Impression: Lily Garcia??88??F??1935 ? Allergy/Adv: No Known Drug Allergies Close Elbow X-Ray (Signed) Fer Jasso - 03/30/[address] (Signed) Fer Jasso - 03/30/[address] (Signed) Fer Jasso - 03/30/24 Wrist X-Ray (Signed) Fer Jasso - 03/30/24 Chest X-Ray (Signed) Fer Jasso - 03/30/24 Cervical Spine MRI (Signed) James Becker - 03/03/24 Mammogram Screening (Signed) CallJimbo - 08/05/23 Mammogram Screening (Signed) Evette Arguelles - 07/20/22 Mammogram Screening (Signed) Darby Saucedo - 07/13/21 Cervical Spine MRI (Signed) James Becker - 07/23/20 Mammogram Screening (Signed) Call,Jimbo - 07/11/20 Mammogram Screening (Signed) Evette Arguelles - 06/23/19 Mammogram Screening (Signed) Dejan Lino - 06/20/18 [place] [id number] XRay Report Signed Patient: Lily Garcia MR#: [id number] : 1935 Acct:[id number] Age/Sex: 88 / F Date of Service: 03/30/24 Loc: ED Accession Number: [id number] Procedure: XR elbow RT min 3V Ordering Provider: Giovanna Brown D.O. PROCEDURE: XR ELBOW RT MIN 3V INDICATIONS: spiral fx ulna, nontender over elbow TECHNIQUE: 3 views of the elbow were acquired. COMPARISON: None. FINDINGS: Bones: No fractures or dislocations. No suspicious bony lesions. Soft tissues: No elbow joint effusion. No suspicious soft tissue calcifications. IMPRESSION: No elbow dislocation. Dictated by: Fer Jasos M.D. on 03/30/2024 at 16:08 Approved by: Fer Jasso M.D. on 03/30/2024 at 16:08 CT scan - head: Radiologist's Impression: [place] [address] CT Scan Report Signed Patient: Lily Garcia MR#: [id number] : 1935 Acct:[id number] Age/Sex: 88 / F Date of Service: 03/30/24 Loc: ED Accession Number: [id number] Procedure: CT head/brain wo con Ordering Provider: Giovanna Brown D.O. PROCEDURE: CT HEAD/BRAIN WO CON INDICATIONS: fall, hit head TECHNIQUE: Noncontrast 4.5 mm thick angled axial sections acquired from the foramen magnum to the vertex, with coronal and sagittal reformats. For radiation dose reduction, the following was used: automated exposure control, adjustment of mA and/or kV according to patient size. COMPARISON: None. FINDINGS: Image quality: Diagnostic. CSF spaces: Basal cisterns are patent. No extra-axial fluid collections. The ventricles are symmetric in size and shape. Brain: No intracranial bleeds or masses. There is cerebral volume loss for age, with resultant ventricular and sulcal prominence. There are periventricular and deep white matter chronic small vessel ischemic changes. There is intracranial internal carotid artery atherosclerosis. Skull and face: Calvarium and visualized facial bones appear intact, without suspicious lesions. Sinuses: Visualized sinuses and mastoids are clear. IMPRESSION: No acute intracranial pathology. Dictated by: Fer Jasso M.D. on 03/30/2024 at 16:32 Approved by: Fer Jasso M.D. on 03/30/2024 at 16:33 CT - cervical spine: Radiologist's Impression: [address] [address] [address] Scan Report Signed Patient: Lily Garcia MR#: [id number] : 1935 Acct:[id number] Age/Sex: 88 / F Date of Service: 03/30/24 Loc: ED Accession Number: [id number] Procedure: CT cervical spine wo con Ordering Provider: Giovanna Brown D.O. PROCEDURE: CT CERVICAL SPINE WO CON INDICATIONS: fall, hit head TECHNIQUE: Noncontrast 3 mm thick sections acquired from the skull base to the T4 level. Sagittal and coronal reformats were then constructed. For radiation dose reduction, the following was used: automated exposure control, adjustment of mA and/or kV according to patient size. COMPARISON: None. FINDINGS: Image quality: Excellent. Bones: No fractures or dislocations. Visualized superior ribs are intact. Grade 1 anterolisthesis of C7 on T1 due to facet arthrosis. Grade 1 anterolisthesis of C3 on C4 and C4 on C5, due to facet arthrosis. Moderate to severe, multilevel degenerative disc disease and diffuse facet arthrosis. 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 Soft tissues: Prevertebral soft tissues are normal in thickness. No paravertebral hematomas. No apical pneumothoraces. IMPRESSION: No displaced fracture or traumatic subluxation. Dictated by: Fer Jasso M.D. on 03/30/2024 at 16:31 Approved by: Fer Jasso M.D. on 03/30/2024 at 16:32 ECG Data Attestation: I personally reviewed and interpreted this ECG as follows: Interpretation: Questionable atrial fibrillation rate 81 QRS is 78 QTC 450. No priors for comparison. MDM Narrative Medical decision making narrative: 88-year-old female ground level fall did hit her lip, according to family she did not hit her head pretty hard. She has not anticoagulated discussed head CT and cervical spine based on extremity of age. Patient states she likely would not do anything with that information if she did have a positive head bleed but after discussion is open to obtaining imaging. Tetanus was so was updated. White count 11.2 hemoglobin of 13.5 platelets of 257. Coags are negative, sodium is 130 was 135 in September of 2023, otherwise appropriate electrolytes, BUN 16 creatinine 0.79 glucose of 107 AST is 37 but total bili ALT and alk-phos are normal. Total CK is 169 tropes less than 0.012 with a BNP of 548. Chest x-ray shows no acute change Head CT, no intracranial pathology. Cervical spine CT shows no displaced fracture or traumatic subluxation. EKG shows possible atrial fibrillation on monitor patient has been very regularly throughout her stay. Does not have any known history of arrhythmia. She does not wish to pursue further workup. Right wrist x-ray shows spiral fracture distal ulna consider elbow radiographs to exclude proximal radial dislocation. Spoke with Dr. Gonzales, orthopedic surgery, reviewed imaging. Patient has nontender on exam has full range of motion of the right elbow. Would like for dedicated elbow x-ray. Recommends reverse sugar-tong splint with follow up in office. Patient placed in reverse sugar tong by nursing. Patient neurovascularly intact post. She feels much more comfortable. Discussed follow-up. Return precautions with her and family at bedside all questions answered. Discharge Plan Departure Patient Disposition: Home Clinical Impression: Left ulnar fracture Instructions: DI for Forearm Fracture Activity Restrictions/Additional Instructions: Follow up with Orthopedic surgery, call tomorrow to set up a follow up appointment. You can take acetaminophen up to a 1000 mg every 6 hours as needed for pain. Splint Care: Keep splint clean and dry. Elevated affected body part to decrease swelling. OK to use ice pack on the affected body part. Use for 15-20 minutes each time, for 5-6x per day. If you develop worsening pain, numbness, tingling, discoloration of the affected body part, loosen the splint by loosening the DREW wrap, and either see your doctor for an urgent re-assessment, or return to the Emergency Department. Return to the Emergency Department for any new or worsening symptoms. Please return for headaches, new neck or back pain, lightheadedness or passing out, new chest pain or shortness of breath, any persistent vomiting or other new or concerning changes. Prescriptions: No Action lisinopril 20 mg tablet 10 mg PO DAILY Qty: 90 0RF mecobalamin (vitamin B12) 1,000 mcg tablet,disintegrating 1,000 mcg sublingual DAILY Rx Instructions: place tablet under tongue and allow to dissolve for at least30 secs before swallowing paroxetine HCl 20 mg tablet 20 mg PO DAILY Qty: 30 3RF Rx Instructions: Take one tablet once daily Referrals: Capo Gonzales MD [Physician] - Cecil Carpenter MD [Primary Care Provider] - Stand Alone Forms: Patient Portal/API/Survey
[2024-03-30] MEDS: ACETAMINOPHEN 325 MG TABLET 975 MG PO (15:17)
--- NOTE | 2024-03-30 15:31 | DI.CT.S_ITS ---
PROCEDURE: CT CERVICAL SPINE WO CON INDICATIONS: fall, hit head TECHNIQUE: Noncontrast 3 mm thick sections acquired from the skull base to the T4 level. Sagittal and coronal reformats were then constructed. For radiation dose reduction, the following was used: automated exposure control, adjustment of mA and/or kV according to patient size. COMPARISON: None. FINDINGS: Image quality: Excellent. Bones: No fractures or dislocations. Visualized superior ribs are intact. Grade 1 anterolisthesis of C7 on T1 due to facet arthrosis. Grade 1 anterolisthesis of C3 on C4 and C4 on C5, due to facet arthrosis. Moderate to severe, multilevel degenerative disc disease and diffuse facet arthrosis. 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 Soft tissues: Prevertebral soft tissues are normal in thickness. No paravertebral hematomas. No apical pneumothoraces. IMPRESSION: No displaced fracture or traumatic subluxation. Dictated by: Fer Jasso M.D. on 03/30/2024 at 16:31 Approved by: Fer Jasso M.D. on 03/30/2024 at 16:32
--- NOTE | 2024-03-30 15:31 | DI.CT.S_ITS ---
PROCEDURE: CT HEAD/BRAIN WO CON INDICATIONS: fall, hit head TECHNIQUE: Noncontrast 4.5 mm thick angled axial sections acquired from the foramen magnum to the vertex, with coronal and sagittal reformats. For radiation dose reduction, the following was used: automated exposure control, adjustment of mA and/or kV according to patient size. COMPARISON: None. FINDINGS: Image quality: Diagnostic. CSF spaces: Basal cisterns are patent. No extra-axial fluid collections. The ventricles are symmetric in size and shape. Brain: No intracranial bleeds or masses. There is cerebral volume loss for age, with resultant ventricular and sulcal prominence. There are periventricular and deep white matter chronic small vessel ischemic changes. There is intracranial internal carotid artery atherosclerosis. Skull and face: Calvarium and visualized facial bones appear intact, without suspicious lesions. Sinuses: Visualized sinuses and mastoids are clear. IMPRESSION: No acute intracranial pathology. Dictated by: Fer Jasso M.D. on 03/30/2024 at 16:32 Approved by: Fer Jasso M.D. on 03/30/2024 at 16:33
--- NOTE | 2024-03-30 15:43 | DI.RAD.S_ITS ---
PROCEDURE: XR ELBOW RT MIN 3V INDICATIONS: spiral fx ulna, nontender over elbow TECHNIQUE: 3 views of the elbow were acquired. COMPARISON: None. FINDINGS: Bones: No fractures or dislocations. No suspicious bony lesions. Soft tissues: No elbow joint effusion. No suspicious soft tissue calcifications. IMPRESSION: No elbow dislocation. Dictated by: Fer Jasso M.D. on 03/30/2024 at 16:08 Approved by: Fer Jasso M.D. on 03/30/2024 at 16:08
[2024-03-30] MEDS: TET,DIPH,PERTUSS(ACELL),VAC/PF 0.5 ML SYRINGE IM (16:08)
== END 2024-03-30 17:25 | disposition home or self-care (01) ==
PROVIDERS: Emergency Provider Emergency Medicine; PCP Family Medicine
DX: S52.601A Unspecified fracture of lower end of right ulna, initial encounter for closed fracture (principal); W18.09XA Striking against other object with subsequent fall, initial encounter; R07.9 Chest pain, unspecified; S09.90XA Unspecified injury of head, initial encounter; Z95.0 Presence of cardiac pacemaker; Z23 Encounter for immunization
CPT/HCPCS: 29105; 36415; 70450; 71045; 72125; 73080; 73110; 80053; 82550; 83690; 83735; 83880; 84484; 85025; 85610; 85730; 90471; 93005; 99285; 90715

== ENCOUNTER → 2024-08-27 13:33 | Outpatient (CLI) | payer MEDICARE, SELFPAY ==
--- NOTE | 2024-08-27 13:35 | DI.MG.S_ITS ---
MM screening mammo BI: 08/27/2024. BI-RADS: 2 CLINICAL: 88-year old female for bilateral screening mammogram. No Tyrer-Cuzick risk score calculation due to patient's age being over 85 years old. No personal or first-degree family history of breast cancer. The patient had a prior right breast biopsy. PRIOR EXAMS 08/05/2023, 07/20/2022, 07/13/2021, 07/11/2020, 06/23/2019, 06/20/2018, 06/14/2017, 06/05/2016, 06/02/2015. MAMMOGRAPHY TECHNIQUE: 2D and 3D (tomosynthesis) digital mammographic views obtained, with additional images as needed for full coverage. Current study was also evaluated with a Computer Aided Detection (CAD) system. DENSITY C. The breasts are heterogeneously dense, which may obscure small masses. MAMMOGRAPHY FINDINGS Bilateral: Benign-appearing calcifications noted. There are no suspicious masses, calcifications, or other findings in the breast. No significant change from comparison. IMPRESSION: * No evidence of malignancy with benign findings. RECOMMENDATIONS Bilateral * Annual screening mammography. OVERALL ASSESSMENT CATEGORY BI-RADS-2: Benign. The [employer] recommends annual screening mammography beginning at age 40 for women with average risk of breast cancer. ELECTRONICALLY SIGNED: Mari Brandon M.D. on 08/28/2024 at 11:49:30 AM PT Interpreting Station ID: [id number]
== END ==
PROVIDERS: PCP Family Medicine; Referring Provider Family Medicine; Visit Provider Family Medicine
DX: Z12.31 Encounter for screening mammogram for malignant neoplasm of breast (principal); R92.333 Mammographic heterogeneous density, bilateral breasts; R92.1 Mammographic calcification found on diagnostic imaging of breast
CPT/HCPCS: 77063; 77067

== ENCOUNTER 2024-09-05 12:07 | Emergency (ER) | payer MEDICARE, SELFPAY ==
[2024-09-05 12:14] VITALS: BP 206/95; PULSE 92; RESP 17; TEMP 36.9; O2SAT 100; BMI 23.9
--- NOTE | 2024-09-05 12:19 | DI.CT.S_ITS ---
PROCEDURE: CT HEAD/BRAIN WO CON INDICATIONS: fall TECHNIQUE: Noncontrast 4.5 mm thick angled axial sections acquired from the foramen magnum to the vertex, with coronal and sagittal reformats. For radiation dose reduction, the following was used: automated exposure control, adjustment of mA and/or kV according to patient size. COMPARISON: [facility], CT, CT HEAD/BRAIN WO CON, 03/30/2024, 16:06. FINDINGS: Image quality: Diagnostic. CSF spaces: Basal cisterns are patent. No extra-axial fluid collections. Ventricles are normal in size and shape. Brain: No midline shift. No intracranial mass effect or hemorrhage. Knight-white matter interface is normal. Skull and face: Calvarium and visualized facial bones are intact, without suspicious lesions. Sinuses: Visualized sinuses and mastoids are clear. IMPRESSION: No acute intracranial pathology. Approved by: Stephen Patiño M.D. on 09/05/2024 at 12:45
--- NOTE | 2024-09-05 12:20 | DI.CT.S_ITS ---
PROCEDURE: CT CERVICAL SPINE WO CON INDICATIONS: fall TECHNIQUE: Noncontrast 3 mm thick sections acquired from the skull base to the T4 level. Sagittal and coronal reformats were then constructed. For radiation dose reduction, the following was used: automated exposure control, adjustment of mA and/or kV according to patient size. COMPARISON: [facility], CT, CT CERVICAL SPINE WO CON, 03/30/2024, 16:06. FINDINGS: Image quality: Excellent. Bones: No fractures or dislocations. Visualized superior ribs are intact. Disc space narrowing hypertrophic facet joints present throughout the exam associated with grade 1 anterior spondylolisthesis at C3-4, C4-5 and C7 T1. Moderate central stenosis at C6-7 Soft tissues: Prevertebral soft tissues are normal in thickness. No paravertebral hematomas. No apical pneumothoraces. IMPRESSION: No displaced fracture or traumatic subluxation. 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 on 09/05/2024 at 12:59
--- NOTE | 2024-09-05 12:20 | DI.CT.S_ITS ---
PROCEDURE: CT FACIAL BONES WO CON INDICATIONS: fall TECHNIQUE: Noncontrast 2.5 mm thick axial images acquired from the mandible through the frontal sinuses, with coronal and sagittal reformatting. For radiation dose reduction, the following was used: automated exposure control, adjustment of mA and/or kV according to patient size. COMPARISON: None. FINDINGS: Maxillofacial Bones: The zygomaticomaxillary complex is intact. The pterygoid plates and skull base are unremarkable. No evidence of fracture or lytic lesion. Minimally displaced nasal bone fracture noted. Degenerative changes noted in the proximal cervical spine Mandible: The mandible is intact without fracture. Unremarkable temporomandibular articulation. Dentition: Unremarkable mandibular and maxillary dentition. Soft tissues: Soft tissue swelling and air over the nasal bridge Orbits: The osseous orbits, globes and ocular muscles unremarkable. Sinuses and Mastoid: The visualized portion of the paranasal sinuses and mastoids are normal. No air-fluid levels or wall fractures. The nasal vault is unremarkable. IMPRESSION: Minimally displaced nasal bone fracture associated with traumatic soft tissue swelling Approved by: Stephen Patiño M.D. on 09/05/2024 at 12:41
--- NOTE | 2024-09-05 12:20 | DI.RAD.S_ITS ---
PROCEDURE: XR ELBOW LT MIN 3V INDICATIONS: fall TECHNIQUE: 3 views of the elbow were acquired. COMPARISON: None. FINDINGS: Bones: Focal cortical step-off noted involving the lateral radial head Soft tissues: Large elbow joint effusion. No suspicious soft tissue calcifications. IMPRESSION: Nondisplaced impacted radial head fracture associated with large joint effusion Approved by: Stephen Patiño M.D. on 09/05/2024 at 12:17
--- NOTE | 2024-09-05 12:34 | ED.FALL ---
HPI - Fall <Michelle Samuel PA-C - Last Filed: 09/05/24 17:01> General Chief Complaint: Fall Stated Complaint: fell off curb, hit face, knees, no blood thinners Time Seen by Provider: 09/05/24 12:27 Source: patient Mode of arrival: Ambulatory History of Present Illness HPI Narrative: Ms. Garcia is a pleasant 88-year-old female with a past medical history of hypertension, depression, osteoarthritis who presents to the emergency department for injury sustained after a ground level fall that occurred ?a couple of hours ago. Reports that she was on a walk with her friend, was stepping down off a curb to get to the passenger side door of the car but tripped and fell forward hitting her face on the cement and using her left elbow to brace the fall. She reports that she tripped and she had no symptoms precipitating the fall such as chest pain shortness of breath lightheaded dizziness, and she felt in her normal state of health prior to the fall. No LOC, she was dizzy and lightheaded after the fall but reports that after sitting on the curb for minute the symptoms all resolved. No nausea or vomiting. Patient has swelling, deformity and abrasions to the nose, laceration to the lower lip, and pain of the left elbow. She is not on any anticoagulation and her Tdap was updated 03/30/2024 in the emergency department. At this time she states that her left elbows feeling better and she is full range of motion, and her primary pain is in her face and nose and lip. Denies visual disturbance, chest pain, shortness of breath, dizziness, lightheadedness, headache, neck pain, nausea, vomiting, abdominal pain, chest pain, difficulty ambulating, or pain with range of motion of any of her extremities. Related Data Home Medications Medication Instructions Recorded Confirmed mecobalamin (vitamin B12) 1,000 1,000 mcg sublingual DAILY 07/30/23 04/23/24 mcg disintegrating tablet,sublingual Previous Rx's Medication Instructions Recorded lisinopril 20 mg tablet 10 mg (1/2 x 20 mg) PO DAILY #45 05/25/24 tabs paroxetine HCl 20 mg tablet 20 mg PO DAILY #90 tabs 07/28/24 amoxicillin 875 mg-potassium 1 tab PO Q12H 5 days #10 tabs 09/05/24 clavulanate 125 mg tablet Allergies Allergy/AdvReac Type Severity Reaction Status Date / Time No Known Drug Allergies Allergy Verified 09/05/24 12:18 Review of Systems <Michelle Samuel PA-C - Last Filed: 09/05/24 17:01> Review of Systems ROS Unobtainable: All systems reviewed & are unremarkable except as noted in HPI and below Patient History <Michelle Samuel PA-C - Last Filed: 09/05/24 17:01> Medical History (Updated 09/05/24 @ 14:59 by Michelle Samuel PA-C) Depression Surgical History Status post vaginal hysterectomy Status post appendectomy Family History Father No problems noted. Mother No problems noted. Social History marital status: Smoking Status: Never smoker alcohol intake: never substance use type: does not use Smoking Status: Never smoker Exam <Michelle Samuel PA-C - Last Filed: 09/05/24 17:01> Narrative Exam Narrative: GENERAL: 88 year old patient appears stated age. Well-developed patient, in no acute distress. HEAD: Normocephalic. No palpable skull fracture or scalp lacerations. EYES: PERRL. Extraocular motions intact. There is development of bilateral ecchymosis below the eyes, lateral to the nasal bridge. No scleral icterus. No injection or drainage. ENT: There are superficial abrasions on the nasal bridge, tenderness to palpation of the nasal bridge, and swelling. Scant dried blood in right nare, no septal hematoma. Throat without erythema, tonsillar hypertrophy or exudate. Airway patent. Front bottom and top teeth are chipped however patient states that these chips or chronic. She has a small L-shaped 1 cm laceration on the external lower lip, which does cross the vermilion border. Inside the lip, the patient has a 2 cm deep laceration through the center of the bottom lip. Lip lacerations are not connected/through and through. No loose teeth. NECK: Trachea midline. Cervical ROM intact. CARDIOVASCULAR: Regular rate and rhythm. RESPIRATORY: ?Nonlabored respirations. ?Speaking in clear, full sentences. ?Clear to auscultation. Breath sounds equal bilaterally. No wheezes, rales, or rhonchi. ? EXTREMITIES: Left elbow pain has resolved, she is good flexion extension of bilateral elbows, strong radial pulses bilaterally, no snuffbox tenderness bilaterally. No tenderness to palpation of bilateral feet, ankles, knees, hips. BACK: Nontender without deformity or crepitance. NEURO: AOx3. ?Clear speech. ?Moves all 4 extremities appropriately. Ambulatory. SKIN: Facial bruising and lower lip lacerations described above. Initial Vital Signs Initial Vital Signs: Vital Signs Temperature 98.4 F 09/05/24 12:14 Pulse Rate 92 H 09/05/24 12:14 Respiratory Rate 17 09/05/24 12:14 Blood Pressure 206/95 H 09/05/24 12:14 Pulse Oximetry 100 09/05/24 12:14 Oxygen Delivery Method Room Air 09/05/24 12:14 <Mae Hope DO - Last Filed: 09/07/24 08:40> Initial Vital Signs Initial Vital Signs: Vital Signs Temperature 98.4 F 09/05/24 12:14 Pulse Rate 92 H 09/05/24 12:14 Respiratory Rate 17 09/05/24 12:14 Blood Pressure 206/95 H 09/05/24 12:14 Pulse Oximetry 100 09/05/24 12:14 Oxygen Delivery Method Room Air 09/05/24 12:14 Procedures <Michelle Samuel PA-C - Last Filed: 09/05/24 17:01> Laceration Repair Laceration 1: Time of procedure: 14:59 Site: lip (lower, external) Size (cm): 1 Description: linear Depth: simple, single layer Local Anesthetic: lidocaine 1% and with epi Amount of anesthesia used (mL): 2 Pre-repair: wound explored, irrigated extensively and deep structures intact Skin layer closed with: nylon Skin layer suture size: 6-0 Number of sutures: 3 Technique: simple, interrupted Laceration 2: Time of procedure: 15:04 Site: lip (lower, mucosa ) Size (cm): 3 Description: irregular Depth: involves muscle layer Local Anesthetic: lidocaine 1% and with epi Amount of anesthesia used (mL): 2 Pre-repair: wound explored and irrigated extensively Skin layer closed with: other (chromic gut) Skin layer suture size: 5-0 Number of sutures: 3 Technique: simple, interrupted Course <Michelle Samuel PA-C - Last Filed: 09/05/24 17:01> Orders Ordered: Discontinued Medications Acetaminophen (Acetaminophen 325 Mg Tablet) 975 mg PO NOW ONE Stop: 09/05/24 13:08 Last Admin: 09/05/24 13:53 Dose: 975 mg Documented By: ZOILA Amoxicillin/Clavulanate Potassium (Amoxicillin/Clav 875/125 Mg) 1 tab PO NOW ONE Stop: 09/05/24 14:52 Last Admin: 09/05/24 14:54 Dose: 1 tab Documented By: ZOILA Bacitracin (Bacitracin Oint 0.9 Gm Pckt) 1 applic TOP NOW ONE Stop: 09/05/24 14:52 Last Admin: 09/05/24 14:54 Dose: 1 applic Documented By: ZOILA Lidocaine/Epinephrine (Lidocaine 1% W/Epi 10ml) 5 ml SUBCUT NOW ONE Stop: 09/05/24 13:08 Last Admin: 09/05/24 13:54 Dose: 5 ml Documented By: ZOILA Vital Signs Vital signs: Vital Signs - 8 hr 09/05/24 12:14 09/05/24 12:43 09/05/24 15:12 Temperature 98.4 F Pulse Rate 92 H 90 92 H Respiratory Rate 17 18 18 Blood Pressure 206/95 H 167/83 H 171/83 H Pulse Oximetry 100 98 98 Oxygen Delivery Method Room Air Room Air Room Air <Mae Hope DO - Last Filed: 09/07/24 08:40> Orders Ordered: Discontinued Medications Acetaminophen (Acetaminophen 325 Mg Tablet) 975 mg PO NOW ONE Stop: 09/05/24 13:08 Last Admin: 09/05/24 13:53 Dose: 975 mg Documented By: ZOILA Amoxicillin/Clavulanate Potassium (Amoxicillin/Clav 875/125 Mg) 1 tab PO NOW ONE Stop: 09/05/24 14:52 Last Admin: 09/05/24 14:54 Dose: 1 tab Documented By: ZOILA Bacitracin (Bacitracin Oint 0.9 Gm Pckt) 1 applic TOP NOW ONE Stop: 09/05/24 14:52 Last Admin: 09/05/24 14:54 Dose: 1 applic Documented By: ZOILA Lidocaine/Epinephrine (Lidocaine 1% W/Epi 10ml) 5 ml SUBCUT NOW ONE Stop: 09/05/24 13:08 Last Admin: 09/05/24 13:54 Dose: 5 ml Documented By: ZOILA Vital Signs Vital signs: Vital Signs - 8 hr 09/05/24 12:14 09/05/24 12:43 09/05/24 15:12 Temperature 98.4 F Pulse Rate 92 H 90 92 H Respiratory Rate 17 18 18 Blood Pressure 206/95 H 167/83 H 171/83 H Pulse Oximetry 100 98 98 Oxygen Delivery Method Room Air Room Air Room Air MDM - Fall <Michelle Samuel PA-C - Last Filed: 09/05/24 17:01> Medical Records Attestation: I reviewed the patient's medical records. Medical records narrative: Tdap 03/30/2024. Imaging Data CT scan - head: Radiologist's Impression: PROCEDURE: CT HEAD/BRAIN WO CON INDICATIONS: fall TECHNIQUE: Noncontrast 4.5 mm thick angled axial sections acquired from the foramen magnum to the vertex, with coronal and sagittal reformats. For radiation dose reduction, the following was used: automated exposure control, adjustment of mA and/or kV according to patient size. COMPARISON: Merged With [facility], CT, CT HEAD/BRAIN WO CON, 03/30/2024, 16:06. FINDINGS: Image quality: Diagnostic. CSF spaces: Basal cisterns are patent. No extra-axial fluid collections. Ventricles are normal in size and shape. Brain: No midline shift. No intracranial mass effect or hemorrhage. Knight-white matter interface is normal. Skull and face: Calvarium and visualized facial bones are intact, without suspicious lesions. Sinuses: Visualized sinuses and mastoids are clear. IMPRESSION: No acute intracranial pathology. CT - cervical spine: Radiologist's Impression: PROCEDURE: CT CERVICAL SPINE WO CON INDICATIONS: fall TECHNIQUE: Noncontrast 3 mm thick sections acquired from the skull base to the T4 level. Sagittal and coronal reformats were then constructed. For radiation dose reduction, the following was used: automated exposure control, adjustment of mA and/or kV according to patient size. COMPARISON: Merged With [facility], CT, CT CERVICAL SPINE WO CON, 03/30/2024, 16:06. FINDINGS: Image quality: Excellent. Bones: No fractures or dislocations. Visualized superior ribs are intact. Disc space narrowing hypertrophic facet joints present throughout the exam associated with grade 1 anterior spondylolisthesis at C3-4, C4-5 and C7 T1. Moderate central stenosis at C6-7 Soft tissues: Prevertebral soft tissues are normal in thickness. No paravertebral hematomas. No apical pneumothoraces. IMPRESSION: No displaced fracture or traumatic subluxation. 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 For radiation dose reduction, the following was used: automated exposure control, adjustment of mA and/or kV according to patient size. COMPARISON: None. FINDINGS: Maxillofacial Bones: The zygomaticomaxillary complex is intact. The pterygoid plates and skull base are unremarkable. No evidence of fracture or lytic lesion. Minimally displaced nasal bone fracture noted. Degenerative changes noted in the proximal cervical spine Mandible: The mandible is intact without fracture. Unremarkable temporomandibular articulation. Dentition: Unremarkable mandibular and maxillary dentition. Soft tissues: Soft tissue swelling and air over the nasal bridge Orbits: The osseous orbits, globes and ocular muscles unremarkable. Sinuses and Mastoid: The visualized portion of the paranasal sinuses and mastoids are normal. No air-fluid levels or wall fractures. The nasal vault is unremarkable. IMPRESSION: Minimally displaced nasal bone fracture associated with traumatic soft tissue swelling Left Elbow X-Ray: Radiologist's Impression: PROCEDURE: XR ELBOW LT MIN 3V INDICATIONS: fall TECHNIQUE: 3 views of the elbow were acquired. COMPARISON: None. FINDINGS: Bones: Focal cortical step-off noted involving the lateral radial head Soft tissues: Large elbow joint effusion. No suspicious soft tissue calcifications. IMPRESSION: Nondisplaced impacted radial head fracture associated with large joint effusion MDM Narrative Medical decision making narrative: 88-year-old female with a past medical history of hypertension, depression, osteoarthritis who presents to the emergency department for facial injuries after a ground level mechanical fall that occurred prior to arrival, witnessed by her friend who is with her. Differential diagnosis includes but is not limited to nasal fracture, facial contusion, facial laceration, closed head injury, concussion, ICH, elbow sprain, strain, fracture, etc. On exam patient is in no acute distress, nontoxic appearing, vital signs appropriate with mildly elevated blood pressure that is improved since triage. Patient does have significant bruising and abrasions on the front of her face and both and external and internal lower lip laceration that will require repair. No septal hematoma. Upper extremities are neurovascularly intact. CT head, cervical spine, face obtained in triage in addition to a left elbow x-ray. We will add on acetaminophen and lidocaine with epinephrine, we will proceed with lower lip laceration repair. Two lip lacerations were repaired using 6-0 nylon for the external lip laceration and 5-0 chromic gut for the internal lip laceration. Advised external suture removal in 5 days. Bacitracin was applied to superficial abrasions. Patient tolerated procedure very well. Face CT revealed minimally displaced nasal bone fracture associated with traumatic soft tissue swelling. Elbow x-ray revealed nondisplaced impacted radial head fracture associated with large joint effusion. Cervical spine CT was negative for displaced fracture or traumatic subluxation. Head CT reveals no acute intracranial pathology. All imaging results were printed and discussed with the patient and she was provided with her own copies. She was placed into a left arm sling for her left elbow fracture, and I advised she follow up with ENT for her nasal fracture. I will treat her empirically with Augmentin b.i.d. x5 days for the intraoral laceration in addition to nasal fracture with previous epistaxis. Patient verbalized understanding of all information, we discussed wound care, ED return precautions and the appropriate follow up. She is agreeable to the plan and stable for discharge home. Discharge Plan Departure Patient Disposition: Home Clinical Impression: Ground-level fall Closed fracture of head of left radius Qualifiers: Encounter type: initial encounter Fracture alignment: nondisplaced Qualified Code(s): S52.125A - Nondisplaced fracture of head of left radius, initial encounter for closed fracture Fracture of nasal bone Qualifiers: Encounter type: initial encounter Fracture type: closed Qualified Code(s): S02.2XXA - Fracture of nasal bones, initial encounter for closed fracture Laceration of lower lip Qualifiers: Encounter type: initial encounter Qualified Code(s): S01.511A - Laceration without foreign body of lip, initial encounter Instructions: DI for Nose Fracture, DI for Elbow Fracture, DI for Laceration Repair -- Complex Suture Activity Restrictions/Additional Instructions: Dear Ms. Garcia, Today you were evaluated for injuries after a fall. Unfortunately sustained 2 lacerations to your lower lip, a broken left elbow, and a broken nose. Please follow up with the orthopedic surgeon listed below for your left elbow fracture, and the ears nose throat specialist listed below for your nasal fracture. Today you had a laceration to your loer lip. We have placed 6 (3 dissolvable, 3 non-dissolvable) sutures. They need to be removed in 5 days. You may do this in your doctor's office, the [facility], or here if necessary. Please keep the dressing on your wound clean, dry, and intact for the next 24 hours. After this time, you may remove the dressing and gently clean the wound with soap and water, then pat dry. Keep the wound clean and covered. Avoid soaking the wound in any water such as a bath, pool, or the ocean. If you develop any signs of wound infection such as increased redness, pus drainage, streaking redness, or fevers, please return to the ER immediately for evaluation. Once sutures are removed and the wound has healed, apply sunscreen daily to reduce the appearance of scars. Please rinse out your mouth with water after eating/drinking to prevent food particles from getting stuck in your laceration. For your left elbow: Continue wearing the sling, use ibuprofen and acetaminophen if needed for pain, in addition to applying ice. Please use RICE therapy for your pain in addition to ibuprofen/acetaminophen. Rest the painful area. Ice the area of pain/swelling for at least 15 minutes, 4x a day. Compress the area of swelling using a brace, wrap, or splint if applied. Elevate the painful or swollen extremity by supporting it above the level of the heart with pillows when sitting or laying. For your nose: Please avoid blowing, picking are putting anything inside of the nose. You may apply ice to help with swelling. Complete the full course of antibiotics to prevent infection. Please follow up with your primary care doctor within the next 2-3 days for ER follow-up. (If you do not have a PCP you can call [phone]. ?to schedule an appointment with an [facility] Primary Care Provider) IF YOU DEVELOP ANY NEW OR WORSENING SYMPTOMS, RETURN TO THE ER! Please read the attached instructions, they highlight more specific treatments and interventions for you at home. Thank you for letting me participate in your care, Michelle Samuel PA-C Prescriptions: New amoxicillin-pot clavulanate 875-125 mg tablet 1 tab PO Q12H 5 Days Qty: 10 0RF No Action lisinopril 20 mg tablet 10 mg PO DAILY Qty: 45 1RF paroxetine HCl 20 mg tablet 20 mg PO DAILY Qty: 90 3RF mecobalamin (vitamin B12) 1,000 mcg tablet,disintegrating 1,000 mcg sublingual DAILY Rx Instructions: place tablet under tongue and allow to dissolve for at least30 secs before swallowing Referrals: Cecil Carpenter MD [Primary Care Provider] - Damian Wayne MD [Physician] - (minimally displaced nasal bone fracture ) Adalberto Torres MD [Physician] - (left radial head fracture ) Stand Alone Forms: Patient Portal/API/Survey ED Sign-out <Mae Hope DO - Last Filed: 09/07/24 08:40> Cosign ED Attending Cosignature Attestation: I was available for consultation.
[2024-09-05 12:43] VITALS: BP 167/83; PULSE 90; RESP 18; O2SAT 98
[2024-09-05] MEDS: ACETAMINOPHEN 325 MG TABLET 975 MG PO (13:53)
[2024-09-05] MEDS: LIDOCAINE 1% W/EPI 10ML 5 ML SUBCUT (13:54)
[2024-09-05] MEDS: AMOXICILLIN/CLAV 875/125 MG 1 TAB PO (14:54)
[2024-09-05] MEDS: BACITRACIN OINT 0.9 GM PCKT 1 APPLIC TOP (14:54)
[2024-09-05 15:12] VITALS: BP 171/83; PULSE 92; RESP 18; O2SAT 98
== END 2024-09-05 15:15 | disposition home or self-care (01) ==
PROVIDERS: Emergency Provider Physician Assistant; PCP Family Medicine
DX: S52.125A Nondisplaced fracture of head of left radius, initial encounter for closed fracture (principal); S01.511A Laceration without foreign body of lip, initial encounter; S02.2XXA Fracture of nasal bones, initial encounter for closed fracture; W18.30XA Fall on same level, unspecified, initial encounter
CPT/HCPCS: 12013; 70450; 70486; 72125; 73080; 99283; 99284